=== PATIENT | male | born 1995 | race Two or more races ===

== ENCOUNTER 2019-10-13 18:43 | Emergency (ER) | payer OTHER ==
[~2019-10-13] VITALS: Ht 182.9 cm; Wt 95.3 kg
[2019-10-13 20:52] VITALS: BP 111/59
[2019-10-13] MEDS: IBUPROFEN 800 MG TAB PO ONE (21:33)
== END 2019-10-13 21:48 | disposition home or self-care (01) ==
LOC: ER 18:43
DX: S63.601A Unspecified sprain of right thumb, initial encounter (principal); X50.1XXA Overexertion from prolonged static or awkward postures, initial encounter; Y93.89 Activity, other specified; Y92.89 Other specified places as the place of occurrence of the external cause; Y99.0 Civilian activity done for income or pay
CPT/HCPCS: 29125; 73130

== ENCOUNTER 2025-05-06 19:15 | Emergency (ER) | payer OTHER ==
[~2025-05-06] VITALS: Ht 180.3 cm; Wt 99.3 kg
--- NOTE | 2025-05-06 19:54 | ED.PDOC ---
Eye-HPI HPI Comments 29-YEAR-OLD MALE PRESENTS TO THE ED CHIEF COMPLAINT DENTAL PAIN. PATIENT STATES STATUS POST WISDOM TEETH REMOVAL X4. WAS NOT PRESCRIBED ANY ANTIBIOTICS HAS BEEN TAKING MOTRIN 1600 MG DAILY WITH NO RELIEF. LAST TIME HE TOOK MOTRIN WAS LAST NIGHT. HE DENIES FEVER, CHILLS, NAUSEA OR VOMITING Time Seen by MD: 19:18 Primary Care Provider: KATY Reviewed Notes: Nurses Notes, Medications, Allergies Allergies: Coded Allergies: NO KNOWN ALLERGIES (Unverified , 10/13/19) Information Source: Patient Past Medical History PAST MEDICAL HISTORY: Denies Surgical History: Denies all surgeries Family History Family History: Reviewed,noncontributory to illness Social History Smoker: Other Alcohol: Occasionally Drugs: Denies Drug Use Lives In: Home Constitutional: denies: chills, diaphoresis, fatigue, fever, malaise, sweats, weakness, others EENTM: reports: others (DENTAL PAIN); denies: blurred vision, double vision, ear bleeding, ear discharge, ear drainage, ear pain, ear ringing, eye pain, eye redness, hearing loss, mouth pain, mouth swelling, nasal discharge, nose bleeding, nose congestion, nose pain, photophobia, tearing, throat pain, throat swelling, voice changes Respiratory: denies: cough, hemoptysis, orthopnea, SOB at rest, shortness of breath, SOB with excertion, stridor, wheezing, others Cardiovascular: denies: chest pain, dizzy spells, diaphoresis, Dyspnea on exertion, edema, irregular heart beat, left arm pain, lightheadedness, palpitations, PND, syncope, others Gastrointestinal: denies: abdomen distended, abdominal pain, blood streaked bowels, constipated, diarrhea, dysphagia, difficulty swallowing, hematemesis, melena, nausea, poor appetite, poor fluid intake, rectal bleeding, rectal pain, vomiting, others Genitourinary: denies: burning, dysuria, flank pain, frequency, hematuria, incontinence, penile discharge, penile sore, pain, testicle pain, testicle swelling, urgency, others Neurological: denies: dizziness, fainting, headache, left sided numbness, left sided weakness, numbness, paresthesia, pre-existing deficit, right sided numbness, right sided weakness, seizure, speech problems, tingling, tremors, weakness, others Musculoskeletal: denies: back pain, gout, joint pain, joint swelling, muscle pain, muscle stiffness, neck pain, others Integumetry: denies: bruises, change in color, change in hair/nails, dryness, laceration, lesions, lumps, rash, wounds, others Allergic/Immunocompromised: denies: Difficulty Healing, Frequent Infections, Hives, Itching, others Hematologic/Lymphatic: denies: anemia, blood clots, easy bleeding, easy bruising, swollen glands, others Endocrine: denies: excessive hunger, excessive sweating, excessive thirst, excessive urination, flushing, intolerance to cold, intolerance to heat, unexplained weight gain, unexplained weight loss, others Psychiatric: denies: anxiety, bipolar disorder, depression, hopeless, panic disorder, schizophrenia, sleepless, suicidal, others Physical Exam General Appearance: No Apparent Distress, Normal HEENT: Pharynx Normal, TMs Normal, Other (NOTED POST SURGICAL CHANGES UPPER AND LOWER JAW BACK WISDOM TEETH REMOVAL NO NOTED BLEEDING OR VISIBLE ABSCESS NO NOTED DRAINAGE SOCKETS CLEAR) Neck: Full Range of Motion, Non-Tender, Normal, Normal Inspection Respiratory: Chest Non-Tender, Lungs Clear, No Accessory Muscle Use, No Respiratory Distress, Normal Breath Sounds Cardiovascular: No Edema, No JVD, No Murmur, No Gallop, Normal Peripheral Pulses, Regular Rate/Rhythm Breast Exam: Deferred Gastrointestinal: No Organomegaly, Non Tender, No Pulsatile Mass, Normal Bowel Sounds, Soft Genitalia: Deferred Pelvic: Deferred Rectal: Deferred Extremities: No calf tenderness, Normal capillary refill, Normal inspection, Normal range of motion, Non-tender, No pedal edema Musculoskeletal : Apperance: Normal Neurologic: Alert, trash collector II-XII nml as Tested, No Motor Deficits, Normal Affect, Normal Mood, No Sensory Deficits Cerebellar Function: Normal Reflexes: Normal Skin: Dry, Normal Color, Warm Lymphatic: No Adenopathy Was a procedure done? Was a procedure done?: No EENT DIFF Eye: N/A Sore Throat: Donta's Angina, Peritonsillar Cellulitis X-Ray, Labs, Meds, VS Vital Signs Date Time Temp Pulse Resp B/P (MAP) Pulse Ox O2 Delivery O2 Flow Rate FiO2 05/06/25 20:25 99.3 92 18 144/82 (102) 96 99.3 Current Medications Medications (Trade) Dose Ordered Sig/Anjana Route Start Time Stop Time Status Last Admin Ceftriaxone Sodium (Rocephin) 1,000 mg ONCE ONCE IM 05/06/25 20:00 05/06/25 20:01 DC 05/06/25 20:51 Acetaminophen/ Hydrocodone Bitart ([place] 10/325MG Tab) 1 tab ONCE ONCE PO 05/06/25 20:00 05/06/25 20:01 DC 05/06/25 20:50 Ketorolac Tromethamine (Toradol Injection) 60 mg ONCE ONCE IM 05/06/25 20:00 05/06/25 20:01 DC 05/06/25 20:51 Time of 1ST Reevaluation: 19:54 Reevaluation 1ST: Unchanged Time of 2ND Reevaluation: 20:13 Reevaluation 2ND: Improved Patient Education/Counseling: Diagnosis, Treatment, Prognosis, Need For Follow Up Family Education/Counseling: Diagnosis, Treatment, Prognosis, Need For Follow Up SEPSIS Sepsis Screen Vital Signs Date Time Temp Pulse Resp B/P (MAP) Pulse Ox O2 Delivery O2 Flow Rate FiO2 05/06/25 20:25 99.3 92 18 144/82 (102) 96 99.3 Medications Medications Dose Ordered Sig/Anjana Route Start Time Stop Time Status Last Admin Dose Admin Acetaminophen/ Hydrocodone Bitart 1 tab ONCE ONCE PO 05/06/25 20:00 05/06/25 20:01 DC 05/06/25 20:50 Ceftriaxone Sodium 1,000 mg ONCE ONCE IM 05/06/25 20:00 05/06/25 20:01 DC 05/06/25 20:51 Ketorolac Tromethamine 60 mg ONCE ONCE IM 05/06/25 20:00 05/06/25 20:01 DC 05/06/25 20:51 Departure 1 Departure Time of Disposition: 20:13 Impression: Primary Impression: Pain, dental Disposition: 01 HOME / SELF CARE / HOMELESS Condition: Stable e-Prescriptions Ketorolac Tromethamine (Ketorolac Tromethamine) 10 Mg Tab 1 TAB PO TID PRN for 5 Days, #15 TAB Stop all NSAIDs start ketorolac as prescribed Prov: ALFRED NAM 05/06/25 Clindamycin Hcl (Clindamycin Hcl) 300 Mg Cap 300 MG PO QID for 7 Days, #28 CAP Prov: ALFRED NAM 05/06/25 Discharged With: Significant Other Critical Care Note Critical Care Time?: No Stability Stability form required: ALFRED Gutierrez [facility] May 06, 2025 19:54
[2025-05-06] MEDS: HYDROcodone-ACET 10/325MG TAB PO ONE (20:50)
[2025-05-06] MEDS: KETOROLAC TROMETH 60MG/2ML VIAL IM ONE (20:51)
[2025-05-06] MEDS: cefTRIAXone SOD 1,000 MG VL IM ONE (20:51)
[2025-05-06 20:58] VITALS: BP 134/82; PULSE 98; RESP 18; TEMP 99.1; O2SAT 96
[2025-05-06] MEDS ORDERED: KETO10TA PO (21:01)
[2025-05-06] MEDS ORDERED: CLIN1CAP70 PO (21:01)
== END 2025-05-06 21:44 | disposition home or self-care (01) ==
LOC: ER 19:15
DX: K08.89 Other specified disorders of teeth and supporting structures (principal); F17.200 Nicotine dependence, unspecified, uncomplicated
CPT/HCPCS: 96372; 99284; J0696; J1885